=== PATIENT | female | born 1995 | race Caucasian/White ===

== ENCOUNTER 2016-11-20 09:35 | Emergency (ER) | payer OTHER ==
--- NOTE | 2016-11-20 11:18 | UC ---
Complaint Female HPI - HPI Summary HPI Summary: Was recently diagnosed with chlamydia at [facility] urgent care. Abx called in but pt is going to pick them up next. She was advised on the phone to seek testing for blood-borne STIs because of the positive chlamydia. Denies new symptoms, fever, weight loss, or genital lesions. Ended relationship with one male about 2 months ago and had unprotected encounters with him, also started new relationship 1-2 weeks ago and had unprotected encounter with him as well. No other recent sexual partners. - History Of Current Complaint Chief Complaint: UCGeneralIllness Stated Complaint: HIV TESTING Time Seen by Provider: 11/20/16 10:59 Hx Obtained From: Patient Hx Last Menstrual Period: 10/23/16 ?: No Onset/Duration: Gradual Onset Timing: Constant Severity Initially: Mild Severity Currently: Mild Character: Burning Aggravating Factor(s): Urination Associated Signs And Symptoms: Negative: Fever, Vaginal Bleeding/Discharge, Vomiting(# Of Episodes =), Genital Swelling, Genital Blisters - Allergies/Home Medications Allergies/Adverse Reactions: Allergies Allergy/AdvReac Type Severity Reaction Status Date / Time No Known Allergies Allergy Verified 11/20/16 10:55 Home Medications: Home Medications Norethindrone & Ethinyl Estrad [Generess Fe] 1 chw PO 11/20/16 [History] PMH/Surg Hx/FS Hx/Imm Hx - Surgical History Surgical History: Yes Surgery Procedure, Year, and Place: wisdom teeth extraction - Family History Known Family History: Negative: Blood Disorder - Social History Occupation: Student Alcohol Use: Occasionally Substance Use Type: None Smoking Status (MU): Never Smoked Tobacco Review of Systems Constitutional: Negative Skin: Negative Eyes: Negative ENT: Negative Respiratory: Negative Cardiovascular: Negative Gastrointestinal: Negative Genitourinary: Dysuria Motor: Negative Neurovascular: Negative Musculoskeletal: Negative Neurological: Negative Psychological: Negative All Other Systems Reviewed And Are Negative: Yes Physical Exam Triage Information Reviewed: Yes Appearance: Well-Appearing, No Pain Distress, Well-Nourished Vital Signs: Initial Vital Signs Temp 98.1 F 11/20/16 10:39 Pulse 85 11/20/16 10:39 Resp 18 11/20/16 10:39 BP 117/74 11/20/16 10:39 Pulse Ox 100 11/20/16 10:39 Vital Signs Reviewed: Yes Eye Exam: Normal Eyes: Positive: Conjunctiva Clear ENT Exam: Normal ENT: Positive: Normal ENT inspection, Hearing grossly normal, Pharynx normal, TMs normal Dental Exam: Normal Neck exam: Normal Neck: Positive: Supple, No Lymphadenopathy Respiratory Exam: Normal Respiratory: Positive: Chest non-tender, Lungs clear, Normal breath sounds, No respiratory distress, No accessory muscle use Cardiovascular Exam: Normal Cardiovascular: Positive: RRR, No Murmur Musculoskeletal Exam: Normal Musculoskeletal: Positive: ROM Intact Neurological Exam: Normal Neurological: Positive: Alert Psychological Exam: Normal Skin Exam: Normal Complaint Female Dx - Differential Dx/Diagnosis Provider Diagnoses: STI testing after known chlamydia infection Discharge - Discharge Plan Condition: Stable Disposition: HOME Patient Education Materials: Sexually Transmitted Diseases (ED) Additional Instructions: Make sure you take the antibiotics prescribed by [facility] exactly as instructed until they are gone. Call or return here if you have new or worsening symptoms. Lab work pending.
[2016-11-21 12:46] LABS: Syphilis Index < 0.1 Index
== END 2016-11-20 11:33 | disposition home or self-care (01) ==
LOC: UCEAST 09:35
DX: Z11.3 Encounter for screening for infections with a predominantly sexual mode of transmission (principal)
CPT/HCPCS: 36415; 86592; 86703; 86803; 87389; 99201; G0463; G0475

== ENCOUNTER 2016-11-25 19:06 | Emergency (ER) | payer SELFPAY ==
[2016-11-25 19:16] VITALS: BP 123/76
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
== END 2016-11-25 20:58 | disposition home or self-care (01) ==
LOC: ED 19:06
DX: Z04.1 Encounter for examination and observation following transport accident (principal)
CPT/HCPCS: 99281

== ENCOUNTER 2024-03-11 17:43 | Observation (INO) ==
[2024-03-11 18:48] LABS: Hematocrit 40.3 % (35-45); Hemoglobin 13.3 g/dL (11.5-14.3); Mean Corpuscular Hemoglobin 28.9 pg (27-33); Mean Corpuscular Hgb Conc 33.1 g/dL (31-36); Mean Corpuscular Volume 87.5 fL (80-97); Mean Platelet Volume 7.6 fL (7.5-11.2); Platelet Count 296 10^3/uL (150-450); Red Blood Count 4.61 10^6/uL (3.63-4.92); Red Cell Distribution Width 12.8 % (12-17); White Blood Count 19.6 10^3/uL (3.8-11.8)
[2024-03-11 19:12] LABS: ABS Basophils 0.1 10^3/uL (0.0-0.1); ABS Lymphocytes 1.2 10^3/uL (1.0-4.8); ABS Monocytes 1.7 10^3/uL (0.0-0.9); ABS Neutrophils 16.7 10^3/uL (1.5-7.6); Eosinophil % 0.1 %; Lymphocyte % 5.9 %; RBC Morphology Normal (Normal)
[2024-03-11 19:26] LABS: ALT 16 U/L (7-52); AST 24 U/L (13-39); Albumin 4.5 g/dL (3.2-5.2); Albumin/Globulin Ratio 1.7 (1-3); Alkaline Phosphatase 61 U/L (35-149); Anion Gap 14 mmol/L (2-16); Blood Urea Nitrogen 13 mg/dL (6-24); C Reactive Protein 1.48 mg/L (<8.01); CO2 Carbon Dioxide 20 mmol/L (22-32); Calcium 9.3 mg/dL (8.6-10.3); Chloride 103 mmol/L (101-111); Creatinine, Serum 0.73 mg/dL (0.51-0.95); Globulin 2.7 g/dL (2-4); Glucose 102 mg/dL (70-100); Lipase 36 U/L (11.0-82.0); Potassium 3.5 mmol/L (3.5-5.0); Sodium 137 mmol/L (135-145); Total Bilirubin 0.7 mg/dL (0.2-1.0); Total Protein 7.2 g/dL (6.4-8.9); eGFR CKD-EPI 113.4 (>60)
[2024-03-11 19:30] LABS: HCG Pregnancy < 0.60 mIU/mL
[2024-03-11] MEDS: Iohexol 350 (CONTRAST) 500 ML MDV IV ONE (19:59)
[2024-03-11 20:28] LABS: Urine Appearance Clear; Urine Bilirubin Negative (Negative); Urine Blood Negative (Negative); Urine Color Light-Yellow; Urine Glucose Negative (Negative); Urine Ketones 1+ (Negative); Urine Nitrite Negative (Negative); Urine Protein Negative (Negative); Urine Specific Gravity 1.028 (1.002-1.030); Urine Urobilinogen Negative (Negative); Urine pH 7.5 (5.0-8.0)
[2024-03-11] MEDS ORDERED: Ondansetron 4 mg VIAL 2 MG/ML 2 ml VIAL IV PRN (20:46)
[2024-03-11] MEDS: Piperacillin/Tazobac 3.375 BAG 3.375 GM/100 ML BAG IV ONE (21:07)
[2024-03-11] MEDS: D5W 1/2 NS 40 Meq KCL 1000 ml 1,000 ML IV SCH (21:32)
[2024-03-12] MEDS: Piperacillin/Tazobac 3.375 BAG 3.375 GM/100 ML BAG IV SCH (02:05)
[2024-03-12 06:23] LABS: Hematocrit 35.9 % (35-45); Hemoglobin 12.1 g/dL (11.5-14.3); Mean Corpuscular Hemoglobin 29.4 pg (27-33); Mean Corpuscular Hgb Conc 33.7 g/dL (31-36); Mean Corpuscular Volume 87.3 fL (80-97); Mean Platelet Volume 7.6 fL (7.5-11.2); Platelet Count 250 10^3/uL (150-450); Red Blood Count 4.11 10^6/uL (3.63-4.92); Red Cell Distribution Width 12.8 % (12-17); White Blood Count 17.5 10^3/uL (3.8-11.8)
[2024-03-12 07:30] LABS: ABS Basophils 0.1 10^3/uL (0.0-0.1); ABS Lymphocytes 2.3 10^3/uL (1.0-4.8); ABS Monocytes 1.6 10^3/uL (0.0-0.9); ABS Neutrophils 13.6 10^3/uL (1.5-7.6); Eosinophil % 0.1 %; Lymphocyte % 12.9 %
[2024-03-12 07:44] LABS: Anion Gap 9 mmol/L (2-16); Blood Urea Nitrogen 13 mg/dL (6-24); CO2 Carbon Dioxide 22 mmol/L (22-32); Calcium 8.6 mg/dL (8.6-10.3); Chloride 105 mmol/L (101-111); Creatinine, Serum 0.89 mg/dL (0.51-0.95); Glucose 85 mg/dL (70-100); Sodium 136 mmol/L (135-145); eGFR CKD-EPI 89.4 (>60)
[2024-03-12] MEDS: HYDROmorphone 0.5 MG/0.5 ML SYRINGE IV SLOW PU PRN (10:08)
[2024-03-12] MEDS ORDERED: Bupivacaine 0.25% w/EPI 10 ML SDV ONE (11:02)
[2024-03-12] MEDS ORDERED: Propofol 10 MG/ML 20 ML BTL ONE (12:06)
[2024-03-12] MEDS ORDERED: Midazolam 2 mg/2 ml VIAL 1 mg/ml 2 ml VIAL (2 mg) ONE (12:06)
[2024-03-12] MEDS ORDERED: fentaNYL 100 mcg/2 ml 50 MCG/ML VIAL ONE (12:06)
[2024-03-12] MEDS ORDERED: Lidocaine 2% PF 5 ML VIAL ONE (12:06)
[2024-03-12] MEDS ORDERED: Rocuronium 50 mg VIAL 10 mg/ml 5 ml VIAL (50 mg) ONE (12:10)
[2024-03-12] MEDS ORDERED: HYDROmorphone 0.5 MG/0.5 ML SYRINGE ONE (13:08)
[2024-03-12] MEDS ORDERED: Ondansetron 4 mg VIAL 2 MG/ML 2 ml VIAL ONE (13:11)
[2024-03-12] MEDS ORDERED: Dexamethasone IV 4 MG/ML VIAL 1 ml VIAL ONE (13:11)
[2024-03-12] MEDS ORDERED: Acetaminophen IV 1 GM/100ML 1,000 MG/100 ML BAG IV ONE (13:30)
[2024-03-12 16:20] VITALS: BP 104/68
== END 2024-03-12 15:50 | disposition home or self-care (01) ==
LOC: EDHOLD 17:43 → ED 17:43 → AA 03-12 12:05
PROVIDERS: ADMIT Surgery; ATTEND Surgery